=== PATIENT | female | born 1970 | race Caucasian/White ===

== ENCOUNTER → 2024-05-05 15:37 | Outpatient (REF) | payer OTHER, SELFPAY | LOC: RCS 15:37 | PROVIDERS: ATTENDING PHYSICIAN Nurse Practitioner Family | DX: R00.2 Palpitations (principal) | CPT/HCPCS: 93005 ==

== ENCOUNTER → 2024-06-21 09:48 | Outpatient (REF) | payer OTHER, SELFPAY | LOC: HWRAD 09:48 | PROVIDERS: ATTENDING PHYSICIAN Nurse Practitioner Family | DX: R91.1 Solitary pulmonary nodule (principal) | CPT/HCPCS: 71260; Q9967 ==

== ENCOUNTER 2024-08-10 01:13 | Emergency (ER) | payer OTHER, SELFPAY ==
[2024-08-10 01:22] VITALS: BP 143/86
[2024-08-10 01:47] LABS: % Basophils 0.4 % (0-2); % Eosinophils 2.3 % (0-6); % Immature Granulocytes 0.4 % (0-0.5); % Lymphocytes 29.9 % (20.5-51.1); % Monocytes 4.7 % (1.7-9.3); % Neutrophils 62.3 % (42.2-75.2); Absolute Eosinophils 0.2 10^3/uL (0-0.7); Absolute Lymphocytes 2.4 10^3/uL (1.2-3.4); Absolute Monocytes 0.4 10^3/uL (0.1-0.6); Absolute Neutrophils 4.9 10^3/uL (1.4-6.5); Hematocrit 41.7 % (37.0-47.0); Hemoglobin 14.2 g/dL (12.0-16.0); Mean Corp Hgb Conc. 34.1 g/dL (33.0-37.0); Mean Corpuscular Hgb 31.2 pg (27.0-31.0); Mean Corpuscular Volume 91.6 fL (81.0-99.0); Mean Platelet Volume 9.2 fL (7.4-10.4); Nucleated Red Blood Cells % 0 %; Platelet Count 340 10^3/uL (130-400); Red Blood Cell Count 4.55 10^6/uL (4.20-5.40); Red Cell Dist. Width 12.8 % (11.5-14.5); White Blood Cell Count 7.9 10^3/uL (4.8-10.8)
[2024-08-10 02:03] LABS: ALT (SGPT) 40 U/L (0-35); AST (SGOT) 30 U/L (14-36); Albumin 4.9 g/dl (3.5-5.0); Alkaline Phosphatase 104 U/L (38-126); Blood Urea Nitrogen 19 mg/dl (7-17); Calcium 9.6 mg/dl (8.4-10.2); Carbon Dioxide 26 mmol/L (22-30); Chloride 100 mmol/L (98-107); Glucose 97 mg/dl (70-99); Potassium 4.1 mmol/L (3.5-5.1); Sodium 138 mmol/L (135-145); Total Bilirubin 0.5 mg/dl (0.2-1.3); Total Protein 7.8 g/dl (6.3-8.2); eGFR > 60.00
[2024-08-10 02:18] LABS: COVID-19 Antigen Negative (Negative)
--- NOTE | 2024-08-10 03:14 | ED.GENMED ---
History of Present Illness
General
Chief Complaint: Headache
Source: patient and spouse
Exam Limitations: none
Time Seen by Provider: 08/10/24 02:35
Nursing documentation reviewed up to this point in time: agreed with
History of Present Illness
History of Present Illness:
Pleasant 54-year-old female who presents the emergency department with headache. She describes the headache as a 'dull swooshing headache with pulsing in her ears '. She states that that has been intermittently present for the last 3 to 4 days.
She went to her family doctor and was given outpatient prescription for an MRI and ultrasound of the carotids. Patient is a smoker and has hyperlipidemia. She does have sinus issues. Denies fever, chills, nausea or vomiting. Reports no chest
pain or shortness of breath.
Past History
Past History
ED Past Medical History: Cancer (Melanoma), GERD, Hypercholesterolemia and Other (IBS-C, pelvic floor dysfunction, mesenteric panniculitis)
ED Past Surgical History: Appendectomy, and Gynecological (Ovarian cyst surgery )
Social History
Tobacco: Smoker
Alcohol: Occasional
Personal:
Living: with family
Employment: Not employed
Family History
Family History: Negative Early CAD
Review of Systems
Review of Systems
Allergies reviewed?: Yes
All Other Systems: ROS reviewed and negative except as documented in HPI and ROS
Constitutional: Reports no symptoms
EENT: Reports no symptoms
Respiratory: Reports no symptoms
Cardiac: Reports no symptoms
ABD/GI: Reports no symptoms
: Reports no symptoms
Musculoskeletal: Reports no symptoms
Skin: Reports no symptoms
Neurological: Reports headache
Endocrine: Reports no symptoms
Hematologic/Lymphatic: Reports no symptoms
Psychiatric: Reports no symptoms
Phy Exam
General Physical Exam
General Presentation: well appearing and no apparent distress
General Skin: warm and dry
General Habitus: normal
General Mental: alert
General Hydration: appears well hydrated
ENT Exam
ENT Exam: EOMI, pharynx normal, neck supple and normocephalic
Eye Exam
Eye Exam: PERRL, cornea clear and conjunctiva normal
Cardiovascular Exam
Cardiovascular Exam: regular rate/rhythm, no edema, no murmur and normal peripheral pulses
Pulmonary Exam
Pulmonary Exam: lungs clear, no respiratory distress, no rales, no crackles, no rhonchi, no stridor, no wheezing and no cough
Gastrointestinal Exam
Gastrointestinal Exam: normal bowel sounds, non tender, soft, no organomegaly, no pulsatile mass and non distended
Neurological Exam
Neurological Exam: alert, oriented x3, no motor deficits and speech normal
Musculoskeletal Exam
Musculoskeletal Exam: full ROM and no edema
Skin Exam
Skin Exam: normal color, warm/dry, no rash and no petechia
Psychiatric Exam
Psychiatric Exam: normal mood/affect
Course
Orders/Labs/Results
Orders:
Orders
08/10/24 01:18
Electrocardiogram (*1) Urgent
Reason for Study: Vertigo / Dizzy
08/10/24 01:19
EKG- Treatment ONCE
08/10/24 01:[address] [CT Head W/o Iv Contrast] Urgent
Comment:
Reason For Exam: pressure and pulsating feeling in head.
08/10/24 01:34
C-Reactive Protein Urgent
Comment: ADDED
CMP [Comprehensive Metabolic Panel] Urgent
COVID-19 Antigen Urgent
Source: Nasal Swab
Complete Blood Count/With Diff Urgent
Erythrocyte Sed Rate Urgent
Comment: ADDED
Influenza A+B Rapid Molecular Urgent
CHANCE Source: Nasal Swab
Specimen Description:
08/10/24 03:14
Add On- LAB Urgent
Tests Added?: crp, esr
08/10/24 03:18
0.9% Sodium Chloride 1000 ml [Nss] 1,000 ml IV BOLUS
Diphenhydramine [Benadryl] 25 mg IV NOW STA
Ketorolac [Toradol] 15 mg IV NOW STA
Metoclopramide [Reglan] 10 mg IV NOW STA
08/10/24 06:03
Amoxicillin 875 mg/Clav 125 mg [Augmentin 875 mg/125 mg] 1 tablet PO NOW STA
Abnormal Lab Results
08/10/24
01:34
MCH 31.2 H pg
(27.0-31.0)
ESR 21 H mm/hour
(0-20)
BUN 19 H mg/dl
(7-17)
Creatinine 0.5 L mg/dL
(0.6-1.0)
ALT 40 H U/L
(0-35)
08/10/24 01:34
08/10/24 01:34
Vital Signs
Initial and Last Documented VS:
Initial Vital Signs
Temp Pulse Resp BP Pulse Ox
97.6 F 73 20 143/86 98
08/10/24 01:22 08/10/24 01:22 08/10/24 01:22 08/10/24 01:22 08/10/24 01:22
Last Documented Vital Signs
Temp Pulse Resp BP Pulse Ox
97.6 F 73 20 143/86 98
08/10/24 01:22 08/10/24 01:22 08/10/24 01:22 08/10/24 01:22 08/10/24 01:22
*Critical Care Note
Total Time (30-74mins, 75-104mins- exclusive of procedures): Not Applicable
Update Note
Update Note:
CT head
Comparison: None
IMPRESSION:
No acute intracranial findings
Mild global cerebral volume loss
Small bilateral mastoid effusions
No middle ear effusion
Report faxed directly at 3:15 AM ET
Spoke with Dr. Robles, ENT who saw the results of the CAT scan. He recommended Augmentin, Medrol Dosepak in addition to the Decadron and follow-up in his office.
ED Attending Note
-
Portions of this chart may have been created with voice recognition software.� Occasional wrong word or��sound alike� substitutions may have occurred due to the inherent limitations of voice recognition software.
Discharge Plan
Departure
Patient Disposition: Home (Routine Discharge)
Date of Disposition: 08/10/24
Time of Disposition: 06:04
Patient with high blood pressure during this ER visit?: Yes
Discharge Problem:
Acute sinusitis
Instructions: Mastoiditis (DC), Headache, Adult (DC), BLOOD PRESSURE
Prescriptions:
New
amoxicillin-pot clavulanate 875-125 mg tablet
1 tab PO BID Qty: 20 0RF
methylprednisolone [Medrol (Gilberto)] 4 mg tablets,dose pack
See Rx Instructions .ROUTE .COMPLEX Qty: 21 0RF
Rx Instructions:
for 6 days
No Action
ibuprofen 200 MG tablet
600 mg PO HS
ibuprofen 200 MG tablet
400 mg PO DAILY
amoxicillin 500 MG capsule
500 mg PO TID Qty: 42 0RF
oxycodone-acetaminophen 5 MG/325 MG tablet
1 tab PO Q6HPRN PRN (Reason: pain) Qty: 12 0RF
oxycodone-acetaminophen [Percocet] 5-325 mg tablet
1 tab PO Q6HPRN PRN (Reason: pain) Qty: 10 0RF
prednisone 20 mg tablet
40 mg PO DAILY Qty: 8 0RF
Referrals:
Pino Martinez MD [Family Provider] -
Delvin Robles MD [Active] - Next open appointment (Please call for an appointment)
Activity Restrictions/Additional Instructions:
Your prescriptions were sent electronically to the pharmacy that you specified.
It was a pleasure meeting you and taking part in your care. We hope for your continued healing and wellness.
Please read discharge instructions in their entirety. However, they are for general education and may not describe your exact diagnosis at discharge. Information on your ER visit and medical conditions were discussed with you along with appropriate
follow up information...
If indicated, please take your medications as instructed and indicated on discharge paperwork.
Please schedule a follow up appointment as directed. Call to schedule an appointment
Please return to the emergency department with ANY change in, persisting, or worsening of symptoms. If any of your symptoms do not improve, or persist, or become more severe within 6-12 hours, please return to the emergency department for further
care.
Please return to the emergency department if you develop a headache, neck pain/stiffness, fever greater than 100.4F, chest pain, shortness of breath, persistent nausea, vomiting, slurred speech, difficulty walking, numbness/tingling, weakness, signs
of infection or any other symptoms that are worrisome to you.
If you have any questions or concerns please do not hesitate to call the Hospital at or E-mail me directly at [email or web address]
Interventions
Interventions:
*Risk Screen - Suicide Last Done: 08/10/24 01:14
*General Assessment Last Done: 08/10/24 01:14
*Neglect/Abuse Screening Last Done: 08/10/24 01:14
*ED COVID-19 Vaccine History Last Done: 08/10/24 01:14
Discharge Date and Time
Print Language: THAI
[2024-08-10] MEDS: NSS 1000 IV (03:31)
[2024-08-10] MEDS: TORADOL 15 MG IV (03:32)
[2024-08-10] MEDS: REGLAN 10 MG IV (03:32)
[2024-08-10] MEDS: BENADRYL 25 MG IV (03:32)
[2024-08-10 05:09] LABS: Erythrocyte Sed Rate 21 mm/hour (0-20)
[2024-08-10] MEDS: AUGMENTIN 875 MG/125 MG 1 TABLET PO (06:29)
[2024-08-10 06:43] VITALS: BP 135/82
== END 2024-08-10 06:44 | disposition home or self-care (01) ==
LOC: EMR 01:13
PROVIDERS: EMERGENCY PHYSICIAN Student in an Organized Health Care Education/Training Program; FAMILY PHYSICIAN Family Medicine
DX: J01.90 Acute sinusitis, unspecified (principal); E78.00 Pure hypercholesterolemia, unspecified; K21.9 Gastro-esophageal reflux disease without esophagitis; K58.9 Irritable bowel syndrome, unspecified; F17.200 Nicotine dependence, unspecified, uncomplicated; Z85.820 Personal history of malignant melanoma of skin; Z90.49 Acquired absence of other specified parts of digestive tract
CPT/HCPCS: 99284; 96374; 96375; 96361; 70450; 80053; 85025; 85652; 86140; 87502; 87811; 93005

== ENCOUNTER → 2024-08-25 09:35 | Outpatient (REF) | payer OTHER, SELFPAY | LOC: RAD 09:35 | PROVIDERS: ATTENDING PHYSICIAN Nurse Practitioner Family | DX: H93.A9 Pulsatile tinnitus, unspecified ear (principal) | CPT/HCPCS: 93880 ==

== ENCOUNTER → 2024-09-15 11:04 | Outpatient (REF) | payer OTHER, SELFPAY | LOC: MRI 3T 11:04 | PROVIDERS: ATTENDING PHYSICIAN Nurse Practitioner Family | DX: H93.A9 Pulsatile tinnitus, unspecified ear (principal); R51.9 Headache, unspecified | CPT/HCPCS: 70553; A9575 ==

== ENCOUNTER → 2024-09-16 12:41 | Outpatient (REF) | payer OTHER, SELFPAY | LOC: HWRAD 12:41 | PROVIDERS: FAMILY PHYSICIAN Family Medicine | DX: N76.4 Abscess of vulva (principal) | CPT/HCPCS: 76830; 76856 ==

== ENCOUNTER → 2024-11-02 16:29 | Outpatient (REF) | payer OTHER, SELFPAY | LOC: RAD 16:29 | PROVIDERS: ATTENDING PHYSICIAN Nurse Practitioner Family | DX: R91.1 Solitary pulmonary nodule (principal) | CPT/HCPCS: 71260; Q9967 ==